=== PATIENT | male | born 1945 | race African-American/Black ===

== ENCOUNTER 2020-11-19 11:20 | Emergency (ER) | payer MEDICARE, MEDICAID ==
[~2020-11-19] VITALS: Ht 185.4 cm; Wt 130.0 kg
[2020-11-19] MEDS ORDERED: DILTIAZEM HCL 5MG/ML 5ML VIAL IV ONE (11:30)
[2020-11-19] MEDS ORDERED: DILTIAZEM HCL 120MG CAPSULE CD 24HR PO ONE (12:15)
[2020-11-19 12:17] LABS: BASOPHILS % 0.7 % (0.0-2.0); EOSINOPHILS % 2.1 % (0.0-5.0); HEMATOCRIT. 45.8 % (42.0-52.0); HEMOGLOBIN. 15.4 g/dL (14.0-18.0); LYMPHOCYTES % 22.1 % (20.0-50.0); MEAN CORPUSCULAR HEMOGLOBIN 31.1 pg (28.0-32.0); MEAN CORPUSCULAR VOLUME 92.4 fL (80.0-94.0); MEAN PLATELET VOLUME 8.4 fl (7.4-10.4); MONOCYTES % 10.5 % (2.0-8.0); NEUTROPHILS % 64.6 % (40.0-76.0); PLATELET 239 x1000/uL (130-400); RED BLOOD CELL COUNT 4.96 mill/uL (4.7-6.1); RED CELL DISTRIBUTION WIDTH 14.2 % (11.6-14.6)
[2020-11-19 12:21] LABS: CHLORIDE 112 mEq/L (98-107)
[2020-11-19 12:24] LABS: ETHANOL BLOOD < 10 mg/dL
[2020-11-19 13:11] VITALS: BP 150/80
== END 2020-11-19 15:14 | disposition left against medical advice (07) ==
LOC: ER 11:26 → CANBEDREQ 15:25
DX: I48.20 Chronic atrial fibrillation, unspecified (principal); I10 Essential (primary) hypertension; I47.1 Supraventricular tachycardia; Z88.2 Allergy status to sulfonamides; Z53.29 Procedure and treatment not carried out because of patient's decision for other reasons; Z86.73 Personal history of transient ischemic attack (TIA), and cerebral infarction without residual deficits; Z87.891 Personal history of nicotine dependence
CPT/HCPCS: 36415; 71045; 80053; 80320; 83880; 84484; 85025; 93005; 96374; 99285; J3490; G0480